=== PATIENT | female | born 1955 | race Caucasian/White ===

== ENCOUNTER 2018-10-15 02:44 | Emergency (ER) | payer OTHER, MEDICARE ==
[2018-10-15 03:44] LABS: ADD MAN DIFF? NO
[2018-10-15] MEDS: SOD CHLORIDE 0.9% 500 ML IV (04:01)
[2018-10-15 04:04] LABS: ANION GAP 11 (5-13); BLOOD UREA NITROGEN 13 mg/dl (7-20); CALCIUM 9.7 mg/dl (8.4-10.2); CARBON DIOXIDE 24 mmol/L (21-31); CHLORIDE 102 mmol/L (97-110); CREATININE 0.63 mg/dl (0.44-1.00); Estimated GFR > 60 mL/min (>60); GLUCOSE 164 mg/dl (70-220); POTASSIUM 3.8 mmol/L (3.5-5.1); SODIUM 137 mmol/L (135-144)
[2018-10-15 04:10] LABS: WHITE BLOOD COUNT 7.8 10^3/ul (4.8-10.8)
[2018-10-15 04:10] LABS: BASOPHIL # 0.1 10^3/ul (0.0-0.1); BASOPHILS % 0.8 % (0.0-2.0); EOSINOPHILS % 0.3 % (0.0-7.0); HEMATOCRIT 38.3 % (37.0-47.0); HEMOGLOBIN 12.6 g/dl (12.0-16.0); LYMPHOCYTES % 12.5 % (15.0-51.0); MEAN CORPUSCULAR HEMOGLOBIN 29.3 pg (29.0-33.0); MEAN CORPUSCULAR HGB CONC 32.9 g/dl (32.0-37.0); MEAN CORPUSCULAR VOLUME 89.1 fl (82.0-101.0); MEAN PLATELET VOLUME 10.5 fl (7.4-10.4); MONOCYTE # 0.3 10^3/ul (0.3-0.9); MONOCYTES % 4.4 % (0.0-11.0); NEUTROPHIL # 6.3 10^3/ul (1.6-7.5); NEUTROPHILS % 81.6 % (39.0-77.0); PLATELET COUNT 276 10^3/UL (140-415); RED CELL DISTRIBUTION WIDTH 12.4 % (11.5-14.5)
[2018-10-15 04:16] LABS: TROPONIN-I < 0.012 ng/ml (0.000-0.120)
== END 2018-10-15 06:14 | disposition home or self-care (01) ==
LOC: E/R 02:44
DX: R11.0 Nausea (principal); R40.2142 Coma scale, eyes open, spontaneous, at arrival to emergency department; R40.2362 Coma scale, best motor response, obeys commands, at arrival to emergency department; R40.2252 Coma scale, best verbal response, oriented, at arrival to emergency department; T50.2X5A Adverse effect of carbonic-anhydrase inhibitors, benzothiadiazides and other diuretics, initial encounter; I10 Essential (primary) hypertension
CPT/HCPCS: 36415; 70450; 80048; 84484; 85025; 93005; 99285-25

== ENCOUNTER 2019-05-03 06:51 | Day surgery (SDC) | payer OTHER, MEDICAID ==
[2019-05-03] MEDS ORDERED: FENTAnyl 50 MCG/ML VIAL (08:27)
[2019-05-03] MEDS ORDERED: MIDAZOLAM 1 MG/ML 2 ML INJ ×2 (08:27)
== END 2019-05-03 12:35 | disposition home or self-care (01) ==
LOC: GIL 06:51
DX: Z12.11 Encounter for screening for malignant neoplasm of colon (principal); K64.8 Other hemorrhoids; D12.5 Benign neoplasm of sigmoid colon
CPT/HCPCS: 45380; 88305